=== PATIENT | female | born 1960 | race Hispanic/Latino ===

== ENCOUNTER 2017-01-17 08:27 | Day surgery (SDC) | payer MEDICARE ==
[2017-01-17] MEDS ORDERED: Lactated Ringer's 500 ML IV ONE (08:41)
[2017-01-17] MEDS ORDERED: Propofol 10 mg/ml Inj (20 ML) ONE (09:18)
[2017-01-17 09:55] VITALS: TEMP 98.5
[2017-01-17 10:06] VITALS: BP 132/79; PULSE 66; RESP 14; O2SAT 98
== END 2017-01-17 10:31 | disposition home or self-care (01) ==
LOC: H.ENDO 08:27
PROVIDERS: ATTEND Internal Medicine Gastroenterology
DX: Z12.11 Encounter for screening for malignant neoplasm of colon (principal); K64.8 Other hemorrhoids
CPT/HCPCS: 45378; J2704; J7120